=== PATIENT | male | born 1950 | race Caucasian/White ===

== ENCOUNTER 2020-06-03 09:11 | Inpatient (IN) ==
[2020-06-03] MEDS ORDERED: *HR* Propofol 200 MG/20 ML VIAL IVP ONE (09:20)
[2020-06-03] MEDS ORDERED: *HR* FentaNYL (PF) 100 MCG/2 ML VIAL ONE ×2 (09:20→10:50)
[2020-06-03] MEDS ORDERED: CeFAZolin Syr 2,000MG/20 ML 2,000 MG/20 ML SYRINGE IVPB ONE (09:29)
[2020-06-03] MEDS ORDERED: Ringers Solution, Lactated 1,000 ML IVC SCH (09:30)
[2020-06-03] MEDS ORDERED: *HR* Rocuronium Bromide 50 MG/5 ML VIAL ONE (10:55)
[2020-06-03] MEDS ORDERED: *HR* HYDROMORPHONE 2 MG/ML VIAL ONE (11:04)
[2020-06-03] MEDS ORDERED: Sugammadex Sodium 200 MG/2 ML VIAL IV ONE (12:12)
[2020-06-03] MEDS ORDERED: D5% in Water 1,000 ML IVC PRN (13:01)
[2020-06-03] MEDS ORDERED: Dextrose Gel 15 GM/37.5 ML TUBE PO PRN ×2 (13:01)
[2020-06-03] MEDS ORDERED: *HR* Dextrose 50 % in Water (Vial) 50 ML VIAL IVP PRN (13:01)
[2020-06-03] MEDS ORDERED: Naloxone 0.4 MG/ML INJ IVP PRN (13:46)
[2020-06-03] MEDS ORDERED: Ondansetron 4 MG/2 ML VIAL IVP PRN (13:46)
[2020-06-03] MEDS ORDERED: *HR* HYDROcodone/Acet 5/325 mg TABLET PO PRN (13:46)
[2020-06-03] MEDS: 0.9 % Sodium Chloride 1,000 ML IVC SCH (14:36)
[2020-06-03] MEDS: Gabapentin 300 MG CAPSULE PO SCH ×2 (14:36→20:33)
[2020-06-03] MEDS: *HR* Heparin 5,000 UNIT/ML VIAL SQ SCH ×2 (14:36→20:34)
[2020-06-03] MEDS: Ipratropium/Albuterol Neb 3 ML IH SCH ×3 (16:18→23:40)
[2020-06-03] MEDS ORDERED: Insulin LISPRO 300 UNITS/3 ML VIAL SUBQ SCH ×2 (16:30→21:00)
[2020-06-03] MEDS: Insulin LISPRO 300 UNITS/3 ML VIAL SUBQ SCH ×2 (17:48→20:16)
[2020-06-03] MEDS: *HR* HYDROcodone/Acet 5/325 mg TABLET PO PRN (18:19)
[2020-06-03] MEDS: Budesonide/Formoterol 160/4.5 1 PUFF INH IH SCH (19:46)
[2020-06-03] MEDS: Famotidine 20 MG TABLET PO SCH (20:33)
[2020-06-03] MEDS: Sennosides/Docusate Sodium TABLET PO SCH (20:33)
[2020-06-04 03:29] LABS: Hematocrit 39.2 % (37.5-50.1); Hemoglobin 12.9 g/dL (12.9-16.9); Mean Corpuscular HGB Conc 32.9 g/dL (31.6-35.5); Mean Corpuscular Hemoglobin 30.7 pg (28.0-33.3); Mean Corpuscular Volume 93.3 fL (83.0-100.0); Platelet Count 244 K/mcL (140-400); Red Cell Distribution Width 13.4 % (11.5-14.5); White Blood Count 12.2 K/mcL (4.3-11.1)
[2020-06-04] MEDS: 0.9 % Sodium Chloride 1,000 ML IVC SCH ×3 (03:35→19:37)
[2020-06-04 03:42] LABS: % Iron Saturation 12 % (20-55); BUN/Creatinine Ratio 16 (6-26); Blood Urea Nitrogen 17 mg/dL (8-23); Calcium 9.1 mg/dL (8.6-10.3); Carbon Dioxide 23 mEq/L (23-29); Chloride 104 mEq/L (98-107); Glucose 159 mg/dL (70-105); Iron 41 mcg/dL (65-175); Magnesium 2.3 mg/dL (1.6-2.6); Osmolality,Calculated 283 (280-300); Potassium 4.4 mEq/L (3.5-5.1); Sodium 134 mEq/L (136-145); Transferrin 235 mg/dL (203-362); eGFR For African Americans > 60 (> 60); eGFR For Non-African Americans > 60 (> 60)
[2020-06-04] MEDS: Ipratropium/Albuterol Neb 3 ML IH SCH ×6 (04:05→23:35)
[2020-06-04] MEDS: *HR* Heparin 5,000 UNIT/ML VIAL SQ SCH ×3 (06:00→20:44)
[2020-06-04] MEDS: Budesonide/Formoterol 160/4.5 1 PUFF INH IH SCH ×2 (07:48→19:55)
[2020-06-04] MEDS: Tiotropium 10 INH DOSE IH SCH (07:51)
[2020-06-04] MEDS: Aspirin Enteric Coated 81 MG Tablet PO SCH (07:51)
[2020-06-04] MEDS: *HR* Metformin 500 MG TABLET PO SCH (07:52)
[2020-06-04] MEDS: Sennosides/Docusate Sodium TABLET PO SCH ×2 (07:52→20:59)
[2020-06-04] MEDS: Gabapentin 300 MG CAPSULE PO SCH ×3 (07:52→20:58)
[2020-06-04] MEDS: Famotidine 20 MG TABLET PO SCH ×2 (07:52→20:59)
[2020-06-04] MEDS: allopurinoL 100 MG TABLET PO SCH (07:52)
[2020-06-04] MEDS: Insulin LISPRO 300 UNITS/3 ML VIAL SUBQ SCH ×4 (07:54→20:31)
[2020-06-04] MEDS: *HR* HYDROcodone/Acet 5/325 mg TABLET PO PRN (08:17)
[2020-06-04] MEDS ORDERED: *HR* HYDROcodone/Acet 7.5/325 mg TABLET PO PRN (08:47)
[2020-06-04] MEDS ORDERED: DESMOPRESSIN ACETATE IVPB ONE (10:57)
[2020-06-04] MEDS ORDERED: SODIUM CHLORIDE 0.9% IVPB ONE (10:57)
[2020-06-04] MEDS ORDERED: Tranexamic Acid 1,000 MG, Syringe CATH TIP 1 EACH in Water for inj. (sterile) 10 ML NS ONE (10:58)
[2020-06-04 11:14] LABS: Hemoglobin 12.5 g/dL (12.9-16.9)
[2020-06-04] MEDS ORDERED: Albumin Human 5% 12.5 GM/250 ML IV.SOLN IVPB ONE (11:53)
[2020-06-04] MEDS: *HR* OxyCODONE/APAP 10/325 TABLET PO PRN ×2 (16:07→20:58)
[2020-06-04] MEDS ORDERED: Melatonin 3 MG TABLET PO PRN (21:16)
[2020-06-05] MEDS: *HR* OxyCODONE/APAP 10/325 TABLET PO PRN ×4 (01:04→20:30)
[2020-06-05 01:38] LABS: BUN/Creatinine Ratio 21 (6-26); Blood Urea Nitrogen 26 mg/dL (8-23); Calcium 8.9 mg/dL (8.6-10.3); Carbon Dioxide 21 mEq/L (23-29); Chloride 105 mEq/L (98-107); Glucose 161 mg/dL (70-105); Magnesium 1.9 mg/dL (1.6-2.6); Osmolality,Calculated 284 (280-300); Sodium 133 mEq/L (136-145); eGFR For African Americans > 60 (> 60); eGFR For Non-African Americans 58 (> 60)
[2020-06-05 03:33] LABS: Hematocrit 31.3 % (37.5-50.1); Hemoglobin 10.3 g/dL (12.9-16.9); Mean Corpuscular HGB Conc 32.9 g/dL (31.6-35.5); Mean Corpuscular Hemoglobin 30.9 pg (28.0-33.3); Mean Platelet Volume 9.1 fL (9.4-12.4); Platelet Count 227 K/mcL (140-400); Red Blood Count 3.33 M/mcL (4.19-5.50); Red Cell Distribution Width 13.9 % (11.5-14.5); White Blood Count 13.4 K/mcL (4.3-11.1)
[2020-06-05] MEDS: Ipratropium/Albuterol Neb 3 ML IH SCH ×6 (03:57→23:10)
[2020-06-05] MEDS: *HR* Heparin 5,000 UNIT/ML VIAL SQ SCH ×3 (05:20→20:29)
[2020-06-05] MEDS: 0.9 % Sodium Chloride 1,000 ML IVC SCH ×2 (05:21→17:12)
[2020-06-05] MEDS: Budesonide/Formoterol 160/4.5 1 PUFF INH IH SCH ×2 (07:41→20:23)
[2020-06-05] MEDS: Tiotropium 10 INH DOSE IH SCH (07:42)
[2020-06-05] MEDS: Famotidine 20 MG TABLET PO SCH ×2 (07:59→20:33)
[2020-06-05] MEDS: allopurinoL 100 MG TABLET PO SCH (07:59)
[2020-06-05] MEDS: Gabapentin 300 MG CAPSULE PO SCH ×3 (07:59→20:33)
[2020-06-05] MEDS: Sennosides/Docusate Sodium TABLET PO SCH ×2 (07:59→20:34)
[2020-06-05] MEDS: Aspirin Enteric Coated 81 MG Tablet PO SCH (07:59)
[2020-06-05] MEDS: *HR* Metformin 500 MG TABLET PO SCH (07:59)
[2020-06-05] MEDS: Insulin LISPRO 300 UNITS/3 ML VIAL SUBQ SCH ×4 (08:00→21:00)
[2020-06-05] MEDS: Ketorolac 15 MG/ML VIAL IVP SCH ×2 (11:31→17:08)
[2020-06-06] MEDS: Ketorolac 15 MG/ML VIAL IVP SCH ×6 (00:44→23:26)
[2020-06-06 01:28] LABS: Basophils % 0.4 %; Eosinophils # 0.2 K/mcL (0.0-0.6); Eosinophils % 1.5 %; Hematocrit 25.9 % (37.5-50.1); Immature Granulocytes % 0.6 % (0-4); Lymphocytes # 1.8 K/mcL (0.6-4.6); Lymphocytes % 15.8 %; Mean Corpuscular HGB Conc 32.8 g/dL (31.6-35.5); Mean Corpuscular Hemoglobin 30.6 pg (28.0-33.3); Mean Corpuscular Volume 93.2 fL (83.0-100.0); Mean Platelet Volume 8.8 fL (9.4-12.4); Monocytes # 1.7 K/mcL (0.0-1.3); Monocytes % 15.1 %; Neutrophils # 7.4 K/mcL (1.6-8.9); Platelet Count 183 K/mcL (140-400); Red Blood Count 2.78 M/mcL (4.19-5.50); Red Cell Distribution Width 13.7 % (11.5-14.5); Segmented Neutrophils % 66.6 %; White Blood Count 11.1 K/mcL (4.3-11.1)
[2020-06-06 01:31] LABS: Hemoglobin 8.5 g/dL (12.9-16.9)
[2020-06-06 01:49] LABS: BUN/Creatinine Ratio 29 (6-26); Blood Urea Nitrogen 35 mg/dL (8-23); Calcium 8.8 mg/dL (8.6-10.3); Carbon Dioxide 22 mEq/L (23-29); Chloride 104 mEq/L (98-107); Glucose 135 mg/dL (70-105); Osmolality,Calculated 286 (280-300); Potassium 4.8 mEq/L (3.5-5.1); Sodium 133 mEq/L (136-145); eGFR For African Americans > 60 (> 60); eGFR For Non-African Americans 60 (> 60)
[2020-06-06] MEDS: 0.9 % Sodium Chloride 1,000 ML IVC SCH (03:35)
[2020-06-06] MEDS: Ipratropium/Albuterol Neb 3 ML IH SCH ×6 (04:20→23:31)
[2020-06-06] MEDS: *HR* Heparin 5,000 UNIT/ML VIAL SQ SCH ×3 (06:46→21:50)
[2020-06-06] MEDS: Insulin LISPRO 300 UNITS/3 ML VIAL SUBQ SCH ×4 (07:14→21:45)
[2020-06-06] MEDS: allopurinoL 100 MG TABLET PO SCH (07:41)
[2020-06-06] MEDS: Aspirin Enteric Coated 81 MG Tablet PO SCH (07:41)
[2020-06-06] MEDS: *HR* Metformin 500 MG TABLET PO SCH (07:42)
[2020-06-06] MEDS: Famotidine 20 MG TABLET PO SCH ×2 (07:42→21:49)
[2020-06-06] MEDS: Gabapentin 300 MG CAPSULE PO SCH ×3 (07:42→21:49)
[2020-06-06] MEDS: Sennosides/Docusate Sodium TABLET PO SCH ×2 (07:42→21:49)
[2020-06-06] MEDS: Budesonide/Formoterol 160/4.5 1 PUFF INH IH SCH ×2 (08:08→20:20)
[2020-06-06] MEDS: Tiotropium 10 INH DOSE IH SCH (08:10)
[2020-06-06 17:19] LABS: Bilirubin,Urine Negative (Negative); Blood,Urine Negative (Negative); Clarity,Urine Clear (Clear); Color,Urine Light-Yellow (Yellow); Glucose,Urine (UA) Normal (Normal); Ketones,Urine Negative (Negative); Leukocyte Esterase,Urine Negative (Negative); Nitrite,Urine Negative (Negative); Protein,Urine Trace mg/dL (Neg-Trace); Specific Gravity,Urine 1.023 (1.010-1.025); Urobilinogen,Urine Normal (Normal)
[2020-06-06] MEDS ORDERED: Acetaminophen 325 MG TABLET PO PRN (22:53)
[2020-06-07 03:52] LABS: Basophils % 0.3 %; Eosinophils # 0.2 K/mcL (0.0-0.6); Eosinophils % 1.5 %; Hematocrit 24.2 % (37.5-50.1); Hemoglobin 7.9 g/dL (12.9-16.9); Lymphocytes # 1.8 K/mcL (0.6-4.6); Lymphocytes % 17.3 %; Mean Corpuscular HGB Conc 32.6 g/dL (31.6-35.5); Mean Corpuscular Hemoglobin 30.7 pg (28.0-33.3); Mean Corpuscular Volume 94.2 fL (83.0-100.0); Mean Platelet Volume 9.2 fL (9.4-12.4); Monocytes # 1.7 K/mcL (0.0-1.3); Monocytes % 15.9 %; Neutrophils # 6.8 K/mcL (1.6-8.9); Platelet Count 182 K/mcL (140-400); Red Blood Count 2.57 M/mcL (4.19-5.50); Red Cell Distribution Width 13.8 % (11.5-14.5); White Blood Count 10.6 K/mcL (4.3-11.1)
[2020-06-07 04:03] LABS: VBG Ionized Calcium 1.16 mmol/L (1.15-1.35)
[2020-06-07] MEDS: Ipratropium/Albuterol Neb 3 ML IH SCH ×2 (04:04→08:00)
[2020-06-07 04:10] LABS: BUN/Creatinine Ratio 27 (6-26); Blood Urea Nitrogen 33 mg/dL (8-23); Calcium 8.7 mg/dL (8.6-10.3); Carbon Dioxide 22 mEq/L (23-29); Chloride 106 mEq/L (98-107); Glucose 137 mg/dL (70-105); Magnesium 2.2 mg/dL (1.6-2.6); Osmolality,Calculated 287 (280-300); Phosphorous 3.5 mg/dL (2.7-4.5); Potassium 4.4 mEq/L (3.5-5.1); Sodium 134 mEq/L (136-145); eGFR For African Americans > 60 (> 60); eGFR For Non-African Americans 58 (> 60)
[2020-06-07] MEDS: *HR* Heparin 5,000 UNIT/ML VIAL SQ SCH ×3 (05:26→21:47)
[2020-06-07] MEDS: Ketorolac 15 MG/ML VIAL IVP SCH (05:26)
[2020-06-07] MEDS: Budesonide/Formoterol 160/4.5 1 PUFF INH IH SCH ×2 (08:03→19:45)
[2020-06-07] MEDS: Aspirin Enteric Coated 81 MG Tablet PO SCH (08:17)
[2020-06-07] MEDS: *HR* Metformin 500 MG TABLET PO SCH (08:17)
[2020-06-07] MEDS: Gabapentin 300 MG CAPSULE PO SCH ×3 (08:17→20:15)
[2020-06-07] MEDS: Famotidine 20 MG TABLET PO SCH ×2 (08:17→20:15)
[2020-06-07] MEDS: Insulin LISPRO 300 UNITS/3 ML VIAL SUBQ SCH (08:18)
[2020-06-07] MEDS: Sennosides/Docusate Sodium TABLET PO SCH ×2 (08:18→20:15)
[2020-06-07] MEDS: allopurinoL 100 MG TABLET PO SCH (08:18)
[2020-06-07] MEDS: Tiotropium 10 INH DOSE IH SCH (09:03)
[2020-06-08 04:17] LABS: Hematocrit 23.8 % (37.5-50.1); Hemoglobin 7.8 g/dL (12.9-16.9); Mean Corpuscular HGB Conc 32.8 g/dL (31.6-35.5); Mean Corpuscular Volume 94.4 fL (83.0-100.0); Mean Platelet Volume 9.2 fL (9.4-12.4); Platelet Count 215 K/mcL (140-400); Red Blood Count 2.52 M/mcL (4.19-5.50); White Blood Count 12.9 K/mcL (4.3-11.1)
[2020-06-08 04:36] LABS: BUN/Creatinine Ratio 27 (6-26); Blood Urea Nitrogen 26 mg/dL (8-23); Calcium 8.9 mg/dL (8.6-10.3); Carbon Dioxide 21 mEq/L (23-29); Chloride 104 mEq/L (98-107); Glucose 144 mg/dL (70-105); Magnesium 2.1 mg/dL (1.6-2.6); Osmolality,Calculated 285 (280-300); Potassium 4.2 mEq/L (3.5-5.1); Sodium 134 mEq/L (136-145); eGFR For African Americans > 60 (> 60); eGFR For Non-African Americans > 60 (> 60)
[2020-06-08] MEDS: *HR* Heparin 5,000 UNIT/ML VIAL SQ SCH ×2 (05:04→13:57)
[2020-06-08] MEDS: *HR* Metformin 500 MG TABLET PO SCH (07:38)
[2020-06-08] MEDS: Sennosides/Docusate Sodium TABLET PO SCH (07:39)
[2020-06-08] MEDS: Aspirin Enteric Coated 81 MG Tablet PO SCH (07:40)
[2020-06-08] MEDS: Gabapentin 300 MG CAPSULE PO SCH ×2 (07:40→14:28)
[2020-06-08] MEDS: allopurinoL 100 MG TABLET PO SCH (07:40)
[2020-06-08] MEDS: Famotidine 20 MG TABLET PO SCH (07:40)
[2020-06-08] MEDS ORDERED: Azithromycin 500 MG in 0.9 % Sodium Chloride 250 ML IVPB SCH (08:00)
[2020-06-08] MEDS: Budesonide/Formoterol 160/4.5 1 PUFF INH IH SCH (09:55)
[2020-06-08] MEDS: Tiotropium 10 INH DOSE IH SCH (09:56)
[2020-06-08 13:43] VITALS: BP 126/81
== END 2020-06-08 15:05 | disposition home or self-care (01) | DRG 164 ==
LOC: SAMDAY 09:11 → 2NNU 14:09 → ICNU 06-06 21:32
PROVIDERS: ADMIT Thoracic Surgery (Cardiothoracic Vascular Surgery); ATTEND Thoracic Surgery (Cardiothoracic Vascular Surgery)

== ENCOUNTER 2020-09-16 15:19 | Observation (INO) ==
[2020-09-16] MEDS ORDERED: Naloxone 0.4 MG/ML INJ IVP PRN (17:46)
[2020-09-16] MEDS ORDERED: Melatonin 3 MG TABLET PO PRN (17:46)
[2020-09-16] MEDS ORDERED: Mag Hydrox/Al Hydrox/Simeth 30 ML UDC PO PRN (17:46)
[2020-09-16] MEDS ORDERED: Ondansetron ODT 4 MG TAB.RAPDIS SL PRN (17:46)
[2020-09-16] MEDS ORDERED: Furosemide 40 MG/4 ML VIAL IVP ONE (18:33)
[2020-09-16] MEDS ORDERED: Azithromycin 500 MG in 0.9 % Sodium Chloride 250 ML IVPB SCH (19:00)
[2020-09-16] MEDS: cefTRIAXone 1,000 MG in Water for inj. (sterile) 10 ML IVP SCH (19:35)
[2020-09-16 20:10] LABS: Lactate Dehydrogenase 209 Units/L (140-271); Total Protein 8.2 g/dL (6.4-8.9)
[2020-09-16 23:33] LABS: Adenovirus Not Detected (Not Detect); Bordetella Pertussis Not Detected (Not Detect); Chlamydophila pneumoniae Not Detected (Not Detect); Coronavirus 229E Not Detected (Not Detect); Coronavirus HKU1 Not Detected (Not Detect); Coronavirus NL63 Not Detected (Not Detect); Coronavirus OC43 Not Detected (Not Detect); Human Metapneumovirus Not Detected (Not Detect); Human Rhinovirus/Enterovirus Not Detected (Not Detect); Influenza A Subtype 2009 H1 Not Detected (Not Detect); Influenza B Not Detected (Not Detect); Mycoplasma pneumoniae Not Detected (Not Detect); Parainfluenza Virus 1 Not Detected (Not Detect); Parainfluenza Virus 2 Not Detected (Not Detect); Parainfluenza Virus 3 Not Detected (Not Detect); Parainfluenza Virus 4 Not Detected (Not Detect); Respiratory Syncytial Virus Not Detected (Not Detect); SARS-CoV-2 Not Detected (Not Detect)
[2020-09-17 07:53] VITALS: BP 130/89
[2020-09-17 08:28] LABS: Hematocrit 29.3 % (37.5-50.1); Hemoglobin 9.2 g/dL (12.9-16.9); Mean Corpuscular HGB Conc 31.4 g/dL (31.6-35.5); Mean Corpuscular Hemoglobin 27.9 pg (28.0-33.3); Mean Corpuscular Volume 88.8 fL (83.0-100.0); Platelet Count 150 K/mcL (140-400); Red Cell Distribution Width 18.9 % (11.5-14.5); White Blood Count 2.8 K/mcL (4.3-11.1)
[2020-09-17 08:51] LABS: BUN/Creatinine Ratio 26 (6-26); Blood Urea Nitrogen 25 mg/dL (8-23); Calcium 9.3 mg/dL (8.6-10.3); Carbon Dioxide 26 mEq/L (23-29); Chloride 103 mEq/L (98-107); Glucose 112 mg/dL (70-105); Osmolality,Calculated 289 (280-300); Sodium 137 mEq/L (136-145); eGFR For African Americans > 60 (> 60); eGFR For Non-African Americans > 60 (> 60)
[2020-09-17] MEDS: cefTRIAXone 1,000 MG in Water for inj. (sterile) 10 ML IVP SCH (10:20)
== END 2020-09-17 15:12 | disposition home or self-care (01) ==
LOC: EMEROOARM 15:19 → 2NENU 15:19 → SUATTDRO 17:35 → 2NENU 18:58
PROVIDERS: ADMIT Family Medicine; ATTEND Family Medicine